=== PATIENT | female | born 1975 | race American Indian/Alaskan Native ===

== ENCOUNTER 2025-05-13 06:08 | Day surgery (SDC) | payer MEDICAID ==
[2025-05-13] MEDS ORDERED: Propofol 200 MG/20 ML SDV IV ONE (06:09)
[2025-05-13] MEDS ORDERED: Midazolam 1 MG/ML 2 ML SDV IV ONE (06:09)
[2025-05-13] MEDS ORDERED: Ketamine 500 mg/10 ML MDV IV ONE (06:09)
[2025-05-13] MEDS ORDERED: Sodium Chloride 0.9% 10 ML Syringe FLUSH PRN (06:15)
[2025-05-13] MEDS: Lactated Ringers 1,000 ML IV SCH (07:02)
== END 2025-05-13 08:41 | disposition home or self-care (01) ==
LOC: FB.SDS 06:08
PROVIDERS: ATTEND Surgery
DX: Z12.11 Encounter for screening for malignant neoplasm of colon (principal); R19.5 Other fecal abnormalities; E11.9 Type 2 diabetes mellitus without complications; E66.9 Obesity, unspecified; Z68.34 Body mass index [BMI] 34.0-34.9, adult; Z79.84 Long term (current) use of oral hypoglycemic drugs; Z79.82 Long term (current) use of aspirin; Z79.4 Long term (current) use of insulin; Z79.899 Other long term (current) drug therapy
CPT/HCPCS: 45378; 81025; 82947; A9270; J2250; J2704; J3490; J7120; 00811